=== PATIENT | female | born 1995 | race Caucasian/White ===

== ENCOUNTER 2017-08-14 10:55 | Emergency (ER) | payer BC, OTHER ==
[~2017-08-14] VITALS: Ht 170.2 cm; Wt 57.9 kg
[2017-08-14] MEDS ORDERED: SODIUM CHLOR 0.9% 1000 ML INJ 1,000 ML IV SCH (11:13)
[2017-08-14] MEDS ORDERED: SODIUM CHLOR 0.9% 1000 ML INJ 1,000 ML IV ONE (11:13)
[2017-08-14] MEDS ORDERED: METOCLOPRAMIDE HCL 10 MG/2 ML VIAL IVP ONE (11:15)
[2017-08-14] MEDS ORDERED: diphenhydrAMINE HCL 50 MG/ML VIAL IVP ONE (11:15)
[2017-08-14 11:17] VITALS: BP 117/61; PULSE 68; RESP 16; TEMP 97.6; O2SAT 100
--- NOTE | 2017-08-14 11:17 | PD ---
HPI Chief Complaint: GI Complaint Time Seen by Provider: 11:05 Travel History International Travel<30 days: No Contact w/Intl Traveler<30days: No Traveled to known affect area: No History of Present Illness HPI This patient was examined in the presence of a female nurse. 22-year-old female presents for evaluation. For the past 8 days she has had multiple episodes of nonbloody emesis on a daily basis. She also reports that for the same duration she has had a left-sided pulsating headache as well as some photophobia. 6 days ago She was seen at [facility] for evaluation of nausea and vomiting were lab work was performed and she was told was unremarkable. She was prescribed Zofran which hasn't helped much with her vomiting. Symptoms have persisted which prompted evaluation. In addition to the headache, nausea she endorses that she has had a pruritic rash in the right upper back region for several days as well. She denies any unusual foods, denies recent travel, denies abdominal pain, diarrhea, flank pain, dysuria, fevers or chills, vaginal bleeding or discharge, chest pain or shortness of breath, cough or congestion, blurred vision. She has no history of migraines. No other complaints. [facility] Social History Alcohol Use: Yes Tobacco Use: Yes Allergies-Medications (Allergen,Severity, Reaction): Coded Allergies: No Known Allergies (Unverified , 08/14/17) Reported Meds & Prescriptions Reported Meds & Active Scripts Active Reglan (Metoclopramide HCl) 10 Mg Tab 10 Mg PO TIDAC Reported Ibuprofen 400 Mg Tab 400 Mg PO Q6H PRN Zofran (Ondansetron HCl) 4 Mg Tab 4 Mg PO Q6HR PRN Review of Systems Except as stated in HPI: all other systems reviewed are Neg Physical Exam Narrative Examined in the presence of a female nurse at all times GENERAL: Well-developed well-nourished female who is vomiting on initial examination. SKIN: Warm and dry. There is an excoriated papular rash to the right upper back region. No vesicles, no pustules, no petechiae HEAD: Atraumatic. Normocephalic. EYES: Pupils equal and round. No scleral icterus. No injection or drainage. ENT: No nasal bleeding or discharge. Mucous membranes pink and moist. NECK: Trachea midline. No JVD. CARDIOVASCULAR: Regular rate and rhythm. No murmur appreciated. RESPIRATORY: No accessory muscle use. Clear to auscultation. Breath sounds equal bilaterally. GASTROINTESTINAL: Abdomen soft, non-tender, nondistended. Hepatic and splenic margins not palpable. MUSCULOSKELETAL: No obvious deformities. No clubbing. No cyanosis. No edema. NEUROLOGICAL: Awake and alert. No obvious cranial nerve deficits. Motor grossly within normal limits. Normal speech. PSYCHIATRIC: Appropriate mood and affect; insight and judgment normal. Data Data Last Documented VS Vital Signs Date Time Temp Pulse Resp B/P (MAP) Pulse Ox O2 Delivery O2 Flow Rate FiO2 08/14/17 12:06 76 17 113/71 (85) 98 Room Air 08/14/17 11:17 97.6 Orders Orders Complete Blood Count With Diff (08/14/17 11:13) Comprehensive Metabolic Panel (08/14/17 11:13) Lipase (08/14/17 11:13) Urinalysis - C+S If Indicated (08/14/17 11:13) Iv Access Insert/Monitor (08/14/17 11:13) Sodium Chlor 0.9% 1000 Ml Inj (Ns 1000 M (08/14/17 11:13) Ed Urine Pregnancytest Poc (08/14/17 11:13) Ct Brain W/O Iv Contrast(Rout) (08/14/17 11:13) Metoclopramide Inj (Reglan Inj) (08/14/17 11:15) Sodium Chlor 0.9% 1000 Ml Inj (Ns 1000 M (08/14/17 11:13) Diphenhydramine Inj (Benadryl Inj) (08/14/17 11:15) Magnesium (Mg) (08/14/17 11:18) Methylprednisolone So Succ Inj (Solumedr (08/14/17 11:30) Potassium Chloride (Kcl) (08/14/17 12:45) Urine Culture (08/14/17 12:07) Ketorolac Inj (Toradol Inj) (08/14/17 13:00) Oral Rehydration (08/14/17 12:57) Ed Discharge Order (08/14/17 13:39) Labs Laboratory Tests Test 08/14/17 12:07 White Blood Count 10.0 TH/MM3 Red Blood Count 4.51 MIL/MM3 Hemoglobin 14.7 GM/DL Hematocrit 43.9 % Mean Corpuscular Volume 97.3 FL Mean Corpuscular Hemoglobin 32.7 PG Mean Corpuscular Hemoglobin Concent 33.6 % Red Cell Distribution Width 11.6 % Platelet Count 267 TH/MM3 Mean Platelet Volume 9.0 FL Neutrophils (%) (Auto) 86.5 % Lymphocytes (%) (Auto) 8.0 % Monocytes (%) (Auto) 5.0 % Eosinophils (%) (Auto) 0.4 % Basophils (%) (Auto) 0.1 % Neutrophils # (Auto) 8.7 TH/MM3 Lymphocytes # (Auto) 0.8 TH/MM3 Monocytes # (Auto) 0.5 TH/MM3 Eosinophils # (Auto) 0.0 TH/MM3 Basophils # (Auto) 0.0 TH/MM3 CBC Comment DIFF FINAL Differential Comment Urine Collection Type CLEAN CATCH Urine Color YELLOW Urine Turbidity SLIGHT Urine pH 6.5 Urine Specific [place] 1.014 Urine Protein NEG mg/dL Urine Glucose (UA) NEG mg/dL Urine Ketones 40 mg/dL Urine Occult Blood NEG Urine Nitrite NEG Urine Bilirubin NEG Urine Leukocyte Esterase NEG Urine WBC 0-2 /hpf Urine Squamous Epithelial Cells > 8 /hpf Urine Amorphous Sediment MOD Urine Bacteria MOD /hpf Microscopic Urinalysis Comment CULTURE INDICATED Urine Collection Time 1207 Blood Urea Nitrogen 8 MG/DL Creatinine 0.63 MG/DL Random Glucose 115 MG/DL Total Protein 7.5 GM/DL Albumin 4.1 GM/DL Calcium Level 8.6 MG/DL Alkaline Phosphatase 53 U/L Aspartate Amino Transf (AST/SGOT) 13 U/L Alanine Aminotransferase (ALT/SGPT) 20 U/L Total Bilirubin 0.5 MG/DL Sodium Level 137 MEQ/L Potassium Level 3.2 MEQ/L Chloride Level 103 MEQ/L Carbon Dioxide Level 23.4 MEQ/L Anion Gap 11 MEQ/L Estimat Glomerular Filtration Rate 116 ML/MIN Magnesium Level 1.7 MG/DL Lipase 91 U/L [facility] Medical Decision Making Medical Screen Exam Complete: Yes Emergency Medical Condition: Yes Medical Record Reviewed: Yes Differential Diagnosis Migraine, intracranial mass, dehydration, electrolyte abnormality, , gastroenteritis Narrative Course 22-year-old female who has had nausea and vomiting, left-sided headache for 1 week. She has no focal neurologic deficits on examination. Her abdomen is soft and nontender. Lungs were basic lab work, CT the brain. She will be given IV fluids, Reglan, Benadryl and Solu-Medrol. Lab work is been reviewed. Potassium 3.2, urinalysis reveals 40 ketones. There is moderate bacteria however this is a contaminated specimen with greater than 8 squamous epithelial cells and she has nothing to suggest UTI. The patient was given oral potassium chloride. CT of the brain reveals no acute abnormalities. The patient was given IV Toradol for her headache. Her symptoms improved. She was able to tolerate oral hydration. She'll be discharged with a short course of Reglan. Diagnosis Primary Impression: Cephalgia Additional Impression: Nausea and vomiting Additional Instructions: Medication as needed for nausea. Slowly advance diet as tolerated. Follow closely with primary care. Return for any emergent medical conditions. Med/Other Pt SpecificInfo: Prescription(s) given Scripts Metoclopramide (Reglan) 10 Mg Tab 10 MG PO TIDAC, #20 TAB 0 Refills Prov: Yadira Byrd Armando DE JESUS 08/14/17 Disposition: 01 DISCHARGE HOME Condition: Stable Pablo Alexander Aug 14, 2017 11:17
[2017-08-14] MEDS ORDERED: ZOFR4TAB PO (11:21)
[2017-08-14] MEDS ORDERED: IBUP1TAB5 PO (11:21)
[2017-08-14] MEDS ORDERED: methylPREDNISolone SOD SUCC 125 MG/2 ML VIAL IV PUSH ONE (11:30)
[2017-08-14 12:06] VITALS: BP 113/71; PULSE 76; RESP 17; O2SAT 98
[2017-08-14 12:25] LABS: BLOOD, URINE NEG (NEG); GLUCOSE,URINE NEG (NEG); KETONE, URINE 40 mg/dL (NEG); NITRITE,URINE NEG (NEG); PH, URINE 6.5 (5.0-8.5)
[2017-08-14 12:29] LABS: CHLORIDE 103 MEQ/L (98-107); POTASSIUM 3.2 MEQ/L (3.5-5.1); SODIUM (NA) 137 MEQ/L (136-145)
[2017-08-14 12:31] LABS: AUTOMATED NEUTROPHIL # 8.7 TH/MM3 (1.8-7.7); BASOPHIL % 0.1 % (0.0-2.0); EOSINOPHIL % 0.4 % (0.0-4.0); HEMATOCRIT 43.9 % (35.0-46.0); LYMPHOCYTE # 0.8 TH/MM3 (1.0-4.8); MEAN CELL VOLUME 97.3 FL (80.0-100.0); MEAN CORPUSCULAR HEMOGLOBIN 32.7 PG (27.0-34.0); MEAN CORPUSCULAR HGB CONC 33.6 % (32.0-36.0); NEUT % 86.5 % (16.0-70.0); PLATELET COUNT 267 TH/MM3 (150-450); RED BLOOD COUNT 4.51 MIL/MM3 (4.00-5.30); RED CELL DISTRIBUTION WIDTH 11.6 % (11.6-17.2)
[2017-08-14 12:32] LABS: HEMO FLAGS DIFF FINAL
[2017-08-14 12:33] LABS: ANION GAP 11 MEQ/L (5-15); BICARBONATE 23.4 MEQ/L (21.0-32.0); BLOOD UREA NITROGEN 8 MG/DL (7-18)
[2017-08-14 12:36] LABS: ALT (GPT) 20 U/L (10-53); AST (GOT) 13 U/L (15-37); GLOMERULAR FILTRATION RATE 116 ML/MIN (>89)
[2017-08-14 12:37] LABS: TOTAL BILIRUBIN ADULT 0.5 MG/DL (0.2-1.0)
[2017-08-14 12:39] LABS: ALKALINE PHOSPHATASE 53 U/L (45-117)
[2017-08-14 12:42] LABS: METHOD OF COLLECTION CLEAN CATCH; URINE COLOR YELLOW (YELLW/STRAW)
[2017-08-14 12:43] LABS: BACTERIA, URINE MOD /hpf; COMMENT (UR) CULTURE INDICATED; COMMENT2 (UR) MUCOUS PRESENT; CULTURE IF INDICATED CULTURE INDICATED; SQUAMOUS EPITHELIAL CELL URINE > 8 /hpf (0-5); WBC, URINE 0-2 /hpf (0-5)
--- NOTE | 2017-08-14 12:44 | RADRPT ---
EXAM DATE/TIME: 08/14/2017 12:29 [place] COMPARISON: No previous studies available for comparison. INDICATIONS : Headache. RADIATION DOSE: 63.46 CTDIvol (mGy) MEDICAL HISTORY : None SURGICAL HISTORY : Tonsillectomy. ENCOUNTER: Initial ACUITY: 1 day PAIN SCALE: 6/10 LOCATION: cranial TECHNIQUE: Multiple contiguous axial images were obtained of the head. Using automated exposure control and adj ustment of the mA and/or kV according to patient size, radiation dose was kept as low as reasonably a chievable to obtain optimal diagnostic quality images. DICOM format image data is available electro nically for review and comparison. FINDINGS: CEREBRUM: The ventricles are normal for age. No evidence of midline shift, mass lesion, hemorrhage or acute in farction. No extra-axial fluid collections are seen. POSTERIOR FOSSA: The cerebellum and brainstem are intact. The 4th ventricle is midline. The cerebellopontine angle i s unremarkable. EXTRACRANIAL: The visualized portion of the orbits is intact. SKULL: The calvaria is intact. No evidence of skull fracture. CONCLUSION: No acute intracranial disease. Elijah Juarez MD on August 14, 2017 at 12:42 Board Certified Radiologist. This report was verified electronically.
[2017-08-14] MEDS ORDERED: POTASSIUM CHLORIDE 20 MEQ CONTROLLED RELEASE TAB PO ONE (12:45)
[2017-08-14] MEDS ORDERED: KETOROLAC TROMETHAMINE 30 MG/ML (IVP) VIAL IV PUSH ONE (13:00)
[2017-08-14] MEDS ORDERED: REGL10TA5 PO (13:37)
[2017-08-14 14:01] VITALS: BP 108/57; TEMP 98.1
== END 2017-08-14 14:06 | disposition home or self-care (01) ==
LOC: PHED 10:55
DX: R51 Headache (principal); R11.2 Nausea with vomiting, unspecified; R82.71 Bacteriuria; Z72.0 Tobacco use
CPT/HCPCS: 70450; 80053; 81001; 83690; 83735; 84703; 85025; 87086; 96361; 96374; 96375; 99285; J1200; J1885; J2765; J2930; J7030